=== PATIENT | female | born 1995 | race Caucasian/White ===

== ENCOUNTER 2019-07-09 17:59 | Emergency (ER) | payer SELFPAY ==
--- NOTE | 2019-07-09 18:19 | PC.NURSE ---
pt never made it past registration, due to problems with her insurance, she decided to not be seen. left without being seen.
== END 2019-07-09 18:19 | disposition left against medical advice (07) ==
LOC: EXPGLEN 18:20
PROVIDERS: Emergency Provider Nurse Practitioner
DX: Z53.21 Procedure and treatment not carried out due to patient leaving prior to being seen by health care provider (principal)
CPT/HCPCS: 99199

== ENCOUNTER 2021-06-22 17:35 | Emergency (ER) | payer OTHER, SELFPAY ==
--- NOTE | ~2021-06-22 | CT_ITS ---
EXAMINATION: CT abdomen pelvis wo con DATE: 06/22/2021 19:54 INDICATION: Low abdominal pain. Dysuria. Leukocytosis. TECHNIQUE: Computed tomography (CT) of the abdomen and pelvis was performed without intravenous contr ast. Automated exposure control and iterative reconstruction technique were employed. The dose-length product was 1111.02 mGy-cm. COMPARISON: None. FINDINGS: The visualized portions of the lung bases are clear without pneumonia or pleural effusion. The heart size is normal. No pericardial effusion. The liver, gallbladder, spleen, pancreas, adrenal glands, and kidneys are normal. There is no urolithiasis. There are no dilated loops of bowel. The ap pendix is normal. There are no pathologically enlarged lymph nodes. There is no free intraperitoneal fluid. There is a 2.9 cm dominant follicle in right ovary. There is mild lumbar spondylosis. IMPRESSION: 1. No specific etiology for the patient's symptoms. Reviewed, dictated and finalized at location E. DENTIAL SUPPORT WORKER
[2021-06-22 17:38] VITALS: BP 128/76; PULSE 102; RESP 18; TEMP 36.6; O2SAT 100
--- NOTE | 2021-06-22 18:43 | ED.FEMALEGU ---
HPI - Female Genitourinary General Chief complaint: Urogenital-Female Stated complaint: urinary sx Time Seen by Provider: 06/22/21 18:17 Source: patient Mode of arrival: ambulatory Limitations: no limitations History of Present Illness HPI Narrative: This is a 26 year old female that presents to the ER for dysuria. Ongoing today. Associated with hematuria, and lower abdominal pain. Reports possible concern for STDs. Denies fever or vomiting. Related Data Allergies Allergy/AdvReac Type Severity Reaction Status Date / Time No Known Allergies Allergy Unverified 11/25/18 10:16 Review of Systems Review of Systems: CONSTITUTIONAL: Denies fever GASTROINTESTINAL: Reports abdominal pain. Denies nausea, vomiting GENITOURINARY: Reports dysuria and hematuria. SKIN: Denies rash All systems reviewed & are unremarkable except as noted in HPI and below PMFSH Past Medical History Medical History (Updated 06/22/21 @ 21:33 by Brenda Velazquez PA-C) No active medical problems Social History Social History (Updated 06/22/21 @ 20:28 by Brenda Velazquez PA-C) Smoking status: Never smoker Exam Narrative: GENERAL: Well-appearing, well-nourished, and in no acute distress. HEAD: Normocephalic, atraumatic. EYES: EOMI. CHEST: Clear to auscultation. No respiratory distress. No wheezes rales or rhonchi HEART: Regular rate and rhythm. No murmur heard. Normal peripheral pulses. ABDOMEN: Soft, nontender, nondistended, normal active bowel sounds. EXTREMITIES: Normal range of motion. No edema. SKIN: Warm, dry, no rash. NEURO: No focal deficits. Alert and oriented x3. PSYCH: Normal mood and affect PELVIC: Normal external genitalia. Mild amount of irritation around the cervical os. No abnormal discharge Course Vital Signs Vital signs: Vital Signs Temperature 97.9 F 06/22/21 17:38 Pulse Rate 102 H 06/22/21 17:38 Respiratory Rate 18 06/22/21 17:38 Blood Pressure 128/76 06/22/21 17:38 Pulse Oximetry 100 06/22/21 17:38 Temperature 97.9 F 06/22/21 17:38 Pulse Rate 102 H 06/22/21 17:38 Respiratory Rate 18 06/22/21 17:38 Blood Pressure 128/76 06/22/21 17:38 Pulse Oximetry 100 06/22/21 17:38 MDM - Female Genitourinary MDM Narrative Medical decision making narrative: Patient presents to the emergency department for dysuria and hematuria. She is afebrile and nontoxic-appearing. CBC with leukocytosis to 17.5. Metabolic panel without concerning findings. UA with evidence of infection. Bedside test is negative. Trichomonas is also negative. Chlamydia, gonorrhea and genital culture sent. CT scan of the abdomen and pelvis without acute findings. Patient was updated on case findings. Was given first dose of antibiotics IV in the ED to treat for UTI. Will be started on oral antibiotics. She is to follow-up with primary care doctor. She was given warnings to return to the ER Lab Data Attestation: I reviewed the patient's lab results. Result diagrams: 06/22/21 19:15 06/22/21 19:15 Labs: Lab Results 06/22/21 06/22/21 06/22/21 Range/Units 17:48 19:15 19:15 WBC 17.5 H (4.5-10.0) K/mm3 RBC 4.81 (4.2-5.4) M/mm3 Hgb 14.4 (12.0-15.0) g/dL Hct 43.5 (37.0-47.0) % MCV 90.4 (80-100) fl MCH 29.9 (26-34) pg MCHC 33.1 (32-36) g/dl RDW 12.9 (11.5-14.5) % Plt Count 287 (150-375) k/mm3 MPV 11.9 H (7.4-10.4) fl Immature Gran % (Auto) 0.3 (0-0.5) % Neut % (Auto) 79.9 H (45.5-73.1) % Lymph % (Auto) 11.9 L (18.3-44.2) % [place] % (Auto) 6.4 (2.6-8.5) % Eos % (Auto) 1.3 (0-4.4) % Baso % (Auto) 0.2 (0.2-1.2) % Lymph # (Auto) 2.07 (0.9-3.2) K/mm3 [place] # (Auto) 1.1 H (0.1-0.6) K/mm3 Eos # (Auto) 0.2 (0-0.3) K/mm3 Baso # (Auto) 0.0 (0.0-0.1) K/mm3 Abs Immat Gran (auto) 0.06 H (0.00-0.031) K/mm3 Absolute Neuts (auto) 14.0 H (1.3-6.7) K/mm3 Absolute Nucleated RBC 0.0 (0.0-0.012
[2021-06-22 19:19] LABS: Add Urine Microscopic? YES; Appearance Urine Cloudy (Clear); Bacteria Urine 1+ /hpf; Bilirubin Urine Negative (Negative); Blood Urine 3+ (Negative); Color Urine Yellow (Yellow); Glucose Urine UA Negative (Negative); Ketones Urine Negative (Negative); Leukocyte Esterase Ur 3+ LEU/UL (Negative); Mucus Urine Few /lpf; Nitrate Urine Positive (Negative); Protein Urine 1+ mg/dL (Negative); RBC Urine >75 /hpf (0-2); Specific Grav Ur 1.027 (1.001-1.035); Squamous Epithelial Cell Urine Moderate /hpf (Few); Urobilinogen Urine Negative mg/dL (<2.0); WBC Urine >75 /hpf
[2021-06-22 19:22] LABS: Basophils Percent Auto 0.2 % (0.2-1.2); Eosinophils Absolute Auto 0.2 K/mm3 (0-0.3); Eosinophils Percent Auto 1.3 % (0-4.4); Hematocrit 43.5 % (37.0-47.0); Hemoglobin 14.4 g/dL (12.0-15.0); Immature Granulocyte Absolute 0.06 K/mm3 (0.00-0.031); Immature Granulocyte Percent A 0.3 % (0-0.5); Lymphocytes Absolute Auto 2.07 K/mm3 (0.9-3.2); Lymphocytes Percent Auto 11.9 % (18.3-44.2); Mean Corpuscular HGB Conc 33.1 g/dl (32-36); Mean Corpuscular Hemoglobin 29.9 pg (26-34); Mean Corpuscular Volume 90.4 fl (80-100); Mean Platelet Volume 11.9 fl (7.4-10.4); Monocytes Absolute Auto 1.1 K/mm3 (0.1-0.6); Monocytes Percent Auto 6.4 % (2.6-8.5); Neutrophils Percent Auto 79.9 % (45.5-73.1); Platelet Count Result 287 k/mm3 (150-375); Red Blood Count 4.81 M/mm3 (4.2-5.4); Red Cell Distribution Width 12.9 % (11.5-14.5); White Blood Count 17.5 K/mm3 (4.5-10.0)
[2021-06-22 19:36] LABS: Anion Gap 11 mmol/L (8-16); Blood Urea Nitrogen 12 mg/dL (7-17); Calcium 9.5 mg/dL (8.4-10.2); Carbon Dioxide 26 mmol/L (22-30); Chloride 101 mmol/L (98-107); Estimated CRCL calculation 130 ml/min; Estimated Glomerular Filt Rate > 60; Glucose 104 mg/dL (65-110); Potassium 3.8 mmol/L (3.4-5.0); Sodium 138 mmol/L (137-145)
[2021-06-22] MEDS: ONDANSETRON HCL ODT 4 MG TABLET PO (21:50)
== END 2021-06-22 21:54 | disposition home or self-care (01) ==
PROVIDERS: Physician Assistant; Emergency Provider Emergency Medicine
DX: N10 Acute pyelonephritis (principal)
CPT/HCPCS: 36415; 74176; 80048; 81001; 81025; 85025; 87070; 87077; 87086; 87186; 87491; 87591; 87808; 96365; 99284; A9270; J0696

== ENCOUNTER 2021-06-28 10:16 | Emergency (ER) | payer OTHER, SELFPAY ==
--- NOTE | ~2021-06-28 | XR_ITS ---
EXAMINATION: XR chest 2V DATE: 06/28/2021 10:50 INDICATION: Chest pain TECHNIQUE: PA and lateral views of the chest are obtained. COMPARISON: None available FINDINGS: The lungs are free of acute opacities. There is no pleural effusion or pneumothorax. The ca rdiomediastinal silhouette is normal. The visualized bones and soft tissues are unremarkable. IMPRESSION: 1. No acute cardiopulmonary abnormality. Reviewed, dictated and finalized at location A. UP MACHINE OPERATOR
[2021-06-28 10:20] VITALS: BP 126/79; PULSE 89; RESP 20; TEMP 36.9; O2SAT 100
[2021-06-28 10:30] VITALS: O2SAT 100
--- NOTE | 2021-06-28 10:33 | ECG_ITS ---
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
[2021-06-28 10:57] LABS: Alanine Aminotransferase 15 U/L (4-35); Albumin Level 4.5 g/dL (3.5-5.1); Alkaline Phosphatase 69 U/L (38-126); Anion Gap 6 mmol/L (8-16); Aspartate Amino Transferase 21 U/L (14-36); Bilirubin,Total 0.5 mg/dL (0.2-1.3); Blood Urea Nitrogen 9 mg/dL (7-17); Calcium 9.8 mg/dL (8.4-10.2); Carbon Dioxide 27 mmol/L (22-30); Chloride 105 mmol/L (98-107); Estimated CRCL calculation 130 ml/min; Estimated Glomerular Filt Rate > 60; Glucose 95 mg/dL (65-110); Lipase 269 U/L (23-300); Potassium 4.1 mmol/L (3.4-5.0); Prothrombin Time 12.5 Seconds (11.1-14.7); Sodium 138 mmol/L (137-145)
[2021-06-28 11:01] LABS: Basophils Absolute Auto 0.1 K/mm3 (0.0-0.1); Basophils Percent Auto 0.5 % (0.2-1.2); Eosinophils Absolute Auto 0.2 K/mm3 (0-0.3); Hematocrit 44.6 % (37.0-47.0); Hemoglobin 14.8 g/dL (12.0-15.0); Immature Granulocyte Absolute 0.02 K/mm3 (0.00-0.031); Immature Granulocyte Percent A 0.2 % (0-0.5); Lymphocytes Percent Auto 26.5 % (18.3-44.2); Mean Corpuscular HGB Conc 33.2 g/dl (32-36); Mean Corpuscular Hemoglobin 29.6 pg (26-34); Mean Corpuscular Volume 89.2 fl (80-100); Mean Platelet Volume 11.9 fl (7.4-10.4); Monocytes Absolute Auto 0.7 K/mm3 (0.1-0.6); Monocytes Percent Auto 7.1 % (2.6-8.5); Neutrophils Percent Auto 63.7 % (45.5-73.1); Platelet Count Result 288 k/mm3 (150-375); Red Cell Distribution Width 12.9 % (11.5-14.5); White Blood Count 9.4 K/mm3 (4.5-10.0)
--- NOTE | 2021-06-28 11:02 | ED.CHESTPAIN ---
HPI - Chest Pain General Chief Complaint: Chest Pain Stated Complaint: chest pain Time Seen by Provider: 06/28/21 10:26 Source: patient Mode of arrival: ambulatory Limitations: no limitations History of Present Illness HPI narrative: Pt sasy she thinks she had a panic attack at work. Pt has been under a lot of stress recently. Pt says she sharted getting anxious and had chest pressure so came to ER. Symptoms have resoved now. 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 Onset (ago): minute(s) (30) Timing of current episode: episodic Prior episodes: Yes Pain location: left chest Pain radiation: none Severity: mild Quality: heaviness Relieving factors: nothing Exacerbating factors: nothing Risk Factors Coronary artery disease risk factors: none Thoracic aortic dissection risk factors: none Related Data Allergies Allergy/AdvReac Type Severity Reaction Status Date / Time No Known Allergies Allergy Unverified 11/25/18 10:16 Review of Systems Review of Systems: All systems reviewed & are unremarkable except as noted in HPI and below PMFSH Past Medical History Medical History (Updated 06/28/21 @ 11:09 by Alba Luu III, DO) No active medical problems Social History Social History (Updated 06/22/21 @ 20:28 by Brenda Velazquez PA-C) Smoking status: Never smoker Exam Const: General: no acute distress Orientation/consciousness: patient oriented x3 Eyes: Conjunctivae: conjunctivae normal Neck: Neck: normal visual inspection Chest: Chest palpation & inspection: normal inspection of the chest Resp: Effort & Inspection: normal respiratory effort Auscultation: clear to auscultation bilaterally Cardio: Rate: regular rate Rhythm: regular rhythm GI: GI Palp: Yes Soft to palpation Auscultation: normal bowel sounds Neuro: General: patient oriented x3 and moves all extremities Extrem: General: normal to inspection Psych: Appearance: grossly normal Affect: normal affect Thought content: Yes Normal thought content present Course Course Emergency Course: Pt calm now CP resolved. wants to follow up with PCP for discusion bout meds for anxiety prison Vital Signs Vital signs: Vital Signs Temperature 98.4 F 06/28/21 10:20 Pulse Rate 89 06/28/21 10:20 Respiratory Rate 20 06/28/21 10:20 Blood Pressure 126/79 06/28/21 10:20 Pulse Oximetry 100 06/28/21 10:20 Temperature 98.4 F 06/28/21 10:20 Pulse Rate 89 06/28/21 10:20 Respiratory Rate 20 06/28/21 10:20 Blood Pressure 126/79 06/28/21 10:20 Pulse Oximetry 100 06/28/21 10:30 MDM - Chest Pain Lab Data Result diagrams: 06/28/21 10:39 06/28/21 10:39 Labs: Lab Results 06/28/21 06/28/21 06/28/21 Range/Units 10:39 10:39 10:39 WBC Pending RBC Pending Hgb Pending Hct Pending MCV Pending MCH Pending MCHC Pending RDW Pending Plt Count Pending MPV Pending Immature Gran % (Auto) Pending Neut % (Auto) Pending Lymph % (Auto) Pending [place] % (Auto) Pending Eos % (Auto) Pending Baso % (Auto) Pending Lymph # (Auto) Pending [place] # (Auto) Pending Eos # (Auto) Pending Baso # (Auto) Pending Abs Immat Gran (auto) Pending Absolute Neuts (auto) Pending Absolute Nucleated RBC Pending Nucleated RBC % Pending PT 12.5 (11.1-14.7) Seconds INR 1.0 APTT 28.0 (22.3-36.8) SECONDS Sodium 138 (137-145) mmol/L Potassium 4.1 (3.4-5.0) mmol/L Chloride 105 (98-107) mmol/L Carbon Dioxide 27 (22-30) mmol/L Anion Gap 6 L (8-16) mmol/L BUN 9 (7-17) mg/dL Creatinine 0.60 L (0.7-1.0) mg/dL Estim Creat Clear Calc 130 ml/min Estimated GFR > 60 (59 - ) Glucose 95 (65-110) mg/dL Calcium 9.8 (8.4-10.2) mg/dL Total Bilirubin 0.5 (0.2-1.3) mg/dL AST 21 (14-36)
[2021-06-28 11:09] LABS: Troponin I < 0.012 ng/mL (0.000-0.034)
== END 2021-06-28 11:45 | disposition home or self-care (01) ==
LOC: ANHED 10:31
PROVIDERS: Emergency Provider Emergency Medicine; PCP Emergency Medicine
DX: F41.0 Panic disorder [episodic paroxysmal anxiety] (principal); R07.9 Chest pain, unspecified
CPT/HCPCS: 36415; 71046; 80053; 83690; 84484; 85025; 85610; 85730; 93005; 99284

== ENCOUNTER 2022-05-09 14:40 | Outpatient (CLI) | payer OTHER, SELFPAY ==
--- NOTE | ~2022-05-09 | CT_ITS ---
EXAMINATION: CT abdomen pelvis w con DATE: 05/09/2022 15:28 INDICATION: Lower abdominal pain TECHNIQUE: Computed tomography (CT) of the abdomen and pelvis was performed with 100 mL Omnipaque-350 intravenous contrast. Automated exposure control and iterative reconstruction technique were employe d. The dose-length product was 612.91 mGy-cm. COMPARISON: 06/22/2021 FINDINGS: Lung bases are clear. Heart size is normal. No pericardial or pleural effusion. There are few scatter ed indeterminate small hypodense versus hypoenhancing hepatic lesions, the largest measuring 2.4 cm a nd focally bulging the liver capsule at the caudal tip of the right hepatic lobe. Gallbladder, spleen , pancreas, bilateral adrenal glands and kidneys are normal. Moderate to large amount of stool scatte red throughout the colon. Small bowel and appendix are normal. Bladder, uterus and right ovary are un remarkable. 1.6 cm peripherally enhancing corpus luteum cyst at the left ovary. No free intraperitone al gas or fluid. No pathologically enlarged abdominal or pelvic lymphadenopathy. Osteitis condensans ilii, left greater than right. IMPRESSION: 1. No acute intra-abdominal/pelvic process. 2. Multiple indeterminate hypodense/hypoenhancing hepatic lesions which are greater than fluid attenu ation. Given patient age and in the absence of known liver disease or primary malignancy these are mo st likely benign with differential including hemangiomas, hepatic adenoma and focal nodular hyperplas ia. Recommend further evaluation with pre and postcontrast MRI. Reviewed, dictated and finalized at location A. AL SERVICES AIDE IMPRESSION: 1. No acute intra-abdominal/pelvic process. 2. Multiple indeterminate hypodense/hypoenhancing hepatic lesions which are gre ater than fluid attenuation. Given patient age and in the absence of known live r disease or primary malignancy these are most likely benign with differential including hemangiomas, hepatic adenoma and focal nodular hyperplasia. Recommend further evaluation with pre and postcontrast MRI.
[2022-05-09 16:22] LABS: Basophils Absolute Auto 0.1 K/mm3 (0.0-0.1); Basophils Percent Auto 0.4 % (0.2-1.2); Eosinophils Absolute Auto 0.4 K/mm3 (0-0.3); Eosinophils Percent Auto 3.7 % (0-4.4); Immature Granulocyte Absolute 0.04 K/mm3 (0.00-0.031); Immature Granulocyte Percent A 0.3 % (0-0.5); Lymphocytes Absolute Auto 3.13 K/mm3 (0.9-3.2); Lymphocytes Percent Auto 27.3 % (18.3-44.2); Mean Corpuscular HGB Conc 32.6 g/dl (32-36); Mean Corpuscular Hemoglobin 29.5 pg (26-34); Mean Corpuscular Volume 90.5 fl (80-100); Mean Platelet Volume 12.2 fl (7.4-10.4); Monocytes Percent Auto 8.4 % (2.6-8.5); Neutrophils Absolute Auto 6.9 K/mm3 (1.3-6.7); Neutrophils Percent Auto 59.9 % (45.5-73.1); Platelet Count Result 275 k/mm3 (150-375); Red Blood Count 4.75 M/mm3 (4.2-5.4); Red Cell Distribution Width 13.5 % (11.5-14.5); White Blood Count 11.5 K/mm3 (4.5-10.0)
[2022-05-09 16:29] LABS: Alanine Aminotransferase 19 U/L (6-35); Albumin Level 4.2 g/dL (3.5-5.1); Alkaline Phosphatase 60 U/L (38-126); Anion Gap 6 mmol/L (8-16); Aspartate Amino Transferase 19 U/L (14-36); Bilirubin,Total 0.3 mg/dL (0.2-1.3); Blood Urea Nitrogen 8 mg/dL (7-17); CRP 0.7 mg/dL (<1.0); Calcium 8.7 mg/dL (8.4-10.2); Carbon Dioxide 29 mmol/L (22-30); Chloride 103 mmol/L (98-107); Estimated Glomerular Filt Rate > 60; Glucose 74 mg/dL (65-110); Potassium 4.1 mmol/L (3.4-5.0); Sodium 138 mmol/L (137-145)
[2022-05-09 16:56] LABS: Erythrocyte Sedimentation Rate 15 mm/hr (0-20)
== END 2022-05-09 14:41 | disposition home or self-care (01) ==
PROVIDERS: PCP Nurse Practitioner; Visit Provider Nurse Practitioner
DX: R10.32 Left lower quadrant pain (principal)
CPT/HCPCS: 36415; 74177; 80053; 85025; 85652; 86140; Q9967

== ENCOUNTER 2022-07-24 20:20 | Emergency (ER) | payer OTHER, SELFPAY ==
[2022-07-24] VITALS (13 sets, daily range): BP systolic 104–113; BP diastolic 65–80; PULSE 76–96; RESP 16–18; TEMP 36.6–36.8; O2SAT 96–100
--- NOTE | ~2022-07-24 | CT_ITS ---
EXAMINATION: CT abdomen pelvis w con DATE: 07/24/2022 22:36 INDICATION: upper abdominal pain, diarrhea TECHNIQUE: Computed tomography (CT) of the abdomen and pelvis was performed with 100 mL Omnipaque-350 intravenous contrast. Automated exposure control and iterative reconstruction technique were employe d. The dose-length product was 730.80 mGy-cm. COMPARISON: 05/09/2022. FINDINGS: Lower thorax: Unremarkable Liver: 1.5 cm and 8mm left liver lobe hypodensities, likely representing cysts or hemangiomas. 2.4 cm left lobe lesion near the liver tip with peripheral nodular enhancement typical of a hemangioma. Biliary/Gallbladder: Gallbladder is normal. No bile duct dilation. Pancreas: No mass or duct dilation. Spleen: Normal. Adrenals:No mass. Kidneys: No mass, stone, or hydronephrosis. GI tract: Mild distal esophageal and gastric wall edema. No small or large bowel dilation. Normal archana endix. Mesentery/Peritoneum: No ascites, mass, or free air. Retroperitoneum: No mass. Pelvis: Pelvic organs are within normal limits. Soft Tissues: Soft tissues and body wall unremarkable. Bones: No acute osseous finding. IMPRESSION: Mild esophagitis/gastritis. Otherwise unremarkable CT abdomen and pelvis findings. Reviewed, dictated and finalized at location K. IMPRESSION: Mild esophagitis/gastritis. Otherwise unremarkable CT abdomen and pelvis juan miguel chambers.
[2022-07-24 20:50] LABS: Basophils Absolute Auto 0.1 K/mm3 (0.0-0.1); Basophils Percent Auto 0.7 % (0.2-1.2); Eosinophils Absolute Auto 0.1 K/mm3 (0-0.3); Eosinophils Percent Auto 1.4 % (0-4.4); Hematocrit 46.1 % (37.0-47.0); Hemoglobin 15.2 g/dL (12.0-15.0); Immature Granulocyte Absolute 0.02 K/mm3 (0.00-0.031); Immature Granulocyte Percent A 0.3 % (0-0.5); Lymphocytes Absolute Auto 1.59 K/mm3 (0.9-3.2); Lymphocytes Percent Auto 22.4 % (18.3-44.2); Mean Corpuscular Hemoglobin 29.5 pg (26-34); Mean Corpuscular Volume 89.3 fl (80-100); Mean Platelet Volume 11.9 fl (7.4-10.4); Monocytes Absolute Auto 0.8 K/mm3 (0.1-0.6); Monocytes Percent Auto 10.6 % (2.6-8.5); Neutrophils Absolute Auto 4.6 K/mm3 (1.3-6.7); Neutrophils Percent Auto 64.6 % (45.5-73.1); Platelet Count Result 284 k/mm3 (150-375); Red Blood Count 5.16 M/mm3 (4.2-5.4); Red Cell Distribution Width 13.1 % (11.5-14.5); White Blood Count 7.1 K/mm3 (4.5-10.0)
[2022-07-24] MEDS: FAMOTIDINE 20 MG/2 ML VIAL IV PUSH (20:56)
[2022-07-24] MEDS: ONDANSETRON INJ 4 MG/2 ML VIAL IV PUSH (20:56)
[2022-07-24 20:57] LABS: Appearance Urine Cloudy (Clear); Bacteria Urine None Seen /hpf; Bilirubin Urine Negative (Negative); Blood Urine Negative (Negative); Color Urine Yellow (Yellow); Glucose Urine UA Negative (Negative); Ketones Urine Negative (Negative); Leukocyte Esterase Ur 1+ LEU/UL (Negative); Nitrate Urine Negative (Negative); Non Pathogenic Casts 0-2; Protein Urine Negative (Negative); Specific Grav Ur 1.006 (1.001-1.035); Squamous Epithelial Cell Urine Occasional /hpf (Few); Urobilinogen Urine 0.2 mg/dL (<2.0)
[2022-07-24] MEDS: ACETAMINOPHEN 500 MG TABLET 1000 MG PO (20:57)
[2022-07-24] MEDS: SODIUM CHLORIDE 0.9% IV 2,000 ML 999 ML IV CONT (20:57)
[2022-07-24 21:00] LABS: Add Urine Microscopic? YES
[2022-07-24 21:02] LABS: Alanine Aminotransferase 20 U/L (6-35); Albumin Level 4.4 g/dL (3.5-5.1); Alkaline Phosphatase 71 U/L (38-126); Anion Gap 7 mmol/L (8-16); Aspartate Amino Transferase 22 U/L (14-36); Bilirubin,Total 0.4 mg/dL (0.2-1.3); Blood Urea Nitrogen 7 mg/dL (7-17); Calcium 9.1 mg/dL (8.4-10.2); Carbon Dioxide 27 mmol/L (22-30); Chloride 105 mmol/L (98-107); Estimated CRCL calculation 156 ml/min; Estimated Glomerular Filt Rate > 60; Glucose 96 mg/dL (65-110); Lipase 189 U/L (23-300); Magnesium 1.9 mg/dL (1.6-2.3); Sodium 139 mmol/L (137-145)
[2022-07-24 21:27] LABS: Influenza A QL RT-PCR Negative (Negative); Influenza B QL RT-PCR Negative (Negative); RSV RNA, RT-PCR Negative (Negative); SARS-CoV-2 RNA PCR Negative
--- NOTE | 2022-07-24 21:30 | ED.GENADULT ---
HPI - General Adult General Chief complaint: Unspecified <Conchis Martin PA-C - Last Filed: 07/25/22 03:02> Stated complaint: black stool <CARMINA Mazariegos Last Filed: 07/25/22 03:02> Time Seen by Provider: 07/24/22 20:39 <Conchis Martin PA-C - Last Filed: 07/25/22 03:02> Source: patient <CARMINA Mazariegos Last Filed: 07/25/22 03:02> Mode of arrival: ambulatory <CARMINA Mazariegos Last Filed: 07/25/22 03:02> Limitations: no limitations <CARMINA Mazariegos Last Filed: 07/25/22 03:02> History of Present Illness HPI narrative: Patient is a 27-year-old female who presents the ED with multiple complaints. Patient reports she began feeling mildly ill yesterday with sore throat, subjective fever, chills, headache. She was seen at the outpatient [facility] urgent care center and tested negative for COVID. She states most of those symptoms have resolved. Today, she developed diarrhea and reported having numerous episodes of loose stool. She has been taking Imodium, TheraFlu, Pepto-Bismol, Tylenol. Last took Tylenol at noon. She also reports having upper abdominal pain, but denies nausea or vomiting, cough, congestion, dysuria, hematuria, urinary frequency. <Conchis Martin PA-C - Last Filed: 07/25/22 03:02> Related Data Allergies/adverse reactions: Allergies Allergy/AdvReac Type Severity Reaction Status Date / Time No Known Allergies Allergy Verified 07/24/22 20:29 <CARMINA Mazariegos Last Filed: 07/25/22 03:02> Review of Systems Review of Systems: CONSTITUTIONAL: See HPI. ENT: Denies rhinorrhea, congestion, sore throat. CARDIOVASCULAR: Denies chest pain. RESPIRATORY: Denies dyspnea. GASTROINTESTINAL: See HPI. GENITOURINARY: Denies dysuria or hematuria. SKIN: Denies rash or itching. MUSCULOSKELETAL: Denies back pain, joint pain, or myalgia. NEUROLOGIC: See HPI. <Conchis Martin PA-C - Last Filed: 07/25/22 03:02> All systems reviewed & are unremarkable except as noted in HPI and below <Conchis Martin PA-C - Last Filed: 07/25/22 03:02> [facility] Past Medical History Medical History: Medical History Anxiety <Conchis Martin PA-C - Last Filed: 07/25/22 03:02> Surgical History Surgical History: Surgical History (Updated 07/24/22 @ 22:25 by Conchis Martin PA-C) No pertinent past surgical history <Conchis Martin PA-C - Last Filed: 07/25/22 03:02> Social History Social History: Social History Smoking status: Never smoker <Conchis Martin PA-C - Last Filed: 07/25/22 03:02> Exam Narrative: GENERAL: Well appearing, obese, non-toxic, in no acute distress. HEAD: Normocephalic, atraumatic. NECK: Supple. No adenopathy, no masses. RESPIRATORY: Airway patent, respirations nonlabored. Clear to auscultation bilaterally, no rales, rhonchi, wheezing. CARDIOVASCULAR: Regular rate and rhythm without murmurs, rubs, or gallops. Peripheral pulses 2+ and equal bilaterally. ABDOMINAL: Soft, minimal tenderness throughout upper abdomen, no focal tenderness, nondistended, no hepatosplenomegaly. Normoactive BS. MUSCULOSKELETAL: Moves all extremities. Strength/ROM intact without gross deformities. SKIN: Warm, dry, normal color. No rashes. NEURO: A&O X3. Speech clear. Cranial nerves II-XII grossly intact. Steady gait. No ataxic movements. PSYCHIATRIC: Flat affect. Normal interaction. <Conchis Martin PA-C - Last Filed: 07/25/22 03:02> Course CROSS COUNTRY COACH/PA Physician Supervision This is a was performed by both a physician and an APC. I performed all aspects of the MDM as documented w/ the following additions: 19-year-old female presenting with multiple complaints. Treated for gastritis. White blood cells in urine but asymptomatic. Will await culture re
== END 2022-07-25 00:25 | disposition home or self-care (01) ==
PROVIDERS: Emergency Medicine; Emergency Provider Physician Assistant; PCP Nurse Practitioner
DX: K29.70 Gastritis, unspecified, without bleeding (principal); R82.90 Unspecified abnormal findings in urine; R10.11 Right upper quadrant pain; R10.12 Left upper quadrant pain; R19.7 Diarrhea, unspecified; Z20.822 Contact with and (suspected) exposure to COVID-19
CPT/HCPCS: 36415; 74177; 80053; 81001; 81025; 83690; 83735; 85025; 87086; 87088; 87147; 87637; 96361; 96374; 96375; 99284; A9270; J2405; J7030; Q9967

== ENCOUNTER 2023-07-13 18:17 | Emergency (ER) | payer OTHER, SELFPAY ==
--- NOTE | ~2023-07-13 | CT_ITS ---
EXAMINATION: CT abdomen pelvis w con DATE: 07/13/2023 21:08 INDICATION: abdominal pain leukocytosis TECHNIQUE: Computed tomography (CT) of the abdomen and pelvis was performed with 100 mL Omnipaque-350 intravenous contrast. Automated exposure control and iterative reconstruction technique were employe d. The dose-length product was 690.98 mGy-cm. COMPARISON: 07/24/2022. FINDINGS: Lower thorax: Unremarkable Liver: 1.9 cm and 2.4 cm right lobe hemangiomas. Additional subcentimeter hypodensities likely repres enting cysts or hemangiomas. Biliary/Gallbladder: No inflammatory changes of the gallbladder. 1.0 cm hyperdensity or enhancing foc us in the gallbladder fundus. No bile duct dilation. Pancreas: No mass or duct dilation. Spleen: Normal. Adrenals:No mass. Kidneys: No suspicious mass, obstructing stone, or hydronephrosis. GI tract: No small or large bowel dilation. Normal appendix. Mesentery/Peritoneum: No ascites, mass, or free air. Retroperitoneum: No mass. Pelvis: 2.3 cm subserosal fibroid. Normal ovaries. Normal urinary bladder.. Soft Tissues: Soft tissues and body wall unremarkable. Bones: No acute osseous finding. L4 limbus vertebra. IMPRESSION: No acute abdominopelvic process detected. 1.0 cm gallstone, adherent sludge ball, or gallbladder polyp, recommend nonemergent outpatient right upper quadrant ultrasound for further characterization. Reviewed, dictated and finalized at location K. NURSE IMPRESSION: No acute abdominopelvic process detected. 1.0 cm gallstone, adherent sludge ball, or gallbladder polyp, recommend nonemer gent outpatient right upper quadrant ultrasound for further characterization.
[2023-07-13 18:30] VITALS: BP 136/87; PULSE 70; RESP 16; TEMP 36.5; O2SAT 100
[2023-07-13 18:52] VITALS: BP 144/105; PULSE 73; RESP 20; O2SAT 100
--- NOTE | 2023-07-13 19:25 | ED.GENADULT ---
HPI - General Adult General Chief complaint: Abdominal Pain Stated complaint: back and abd pain Time Seen by Provider: 07/13/23 19:06 History of Present Illness HPI narrative: Patient 28-year-old female who presents emergency department with chief complaint of abdominal pain. The patient reports she ate pizza this evening and started having pain in the epigastric and right upper quadrant the patient reports the pain has improved and is essentially almost resolved at this point patient denies fever reports no prior intra-abdominal surgeries. Related Data Home Medications Medication Instructions Recorded Confirmed No Home Medications 12/12/22 12/12/22 Allergies Allergy/AdvReac Type Severity Reaction Status Date / Time No Known Allergies Allergy Verified 07/13/23 18:51 Review of Systems Review of Systems: A 10 system review of systems was completed on the patient and is negative except for what is stated in the HPI. Nursing and ancillary documentation was reviewed. PMFSH Past Medical History Medical History Allergies Anxiety PCOS (polycystic ovarian syndrome) Surgical History Surgical History No pertinent past surgical history Social History Social History Smoking status: Never smoker Lack of Transportation: No Lack of Food: Never True Current Housing: I Have Housing Concerned About Future Housing: No Difficulty Paying Gas/Electric Bills: No Difficulty Paying for Meds: No Currently Unemployed: No Education: Associate Degree Difficulty w/ Childcare or Family Care: No Exam Narrative: GENERAL: Well-appearing, well-nourished, and in no acute distress. HEAD: Normocephalic, atraumatic. EYES: PERRLA and EOMI. ENT: Nares clear, no rhinorrhea or epistaxis. Mucous membranes moist. NECK: Supple. CHEST: Clear to auscultation. No respiratory distress. HEART: Regular rate and rhythm. No murmur heard. Normal peripheral pulses. ABDOMEN: Soft, Tenderness to palpation the right upper quadrant, nondistended, normal active bowel sounds. EXTREMITIES: Normal range of motion. No edema. SKIN: Warm, dry, no rash. NEURO: No focal deficits. Alert and oriented x3. PSYCH: Normal mood and affect. Course Vital Signs Vital signs: Vital Signs Temperature 36.5 C 07/13/23 18:30 Pulse Rate 70 07/13/23 18:30 Respiratory Rate 16 07/13/23 18:30 Blood Pressure 136/87 07/13/23 18:30 Pulse Oximetry 100 07/13/23 18:30 Oxygen Delivery Room Air 07/13/23 18:30 Temperature 36.5 C 07/13/23 18:30 Pulse Rate 73 07/13/23 18:52 Respiratory Rate 20 07/13/23 18:52 Blood Pressure 144/105 H 07/13/23 18:52 Pulse Oximetry 100 07/13/23 18:52 Oxygen Delivery Room Air 07/13/23 18:30 Medical Decision Making MDM Narrative Medical decision making narrative: differential diagnosis includes biliary colic, cholecystitis common duct choledocholithiasis, pancreatitis laboratory studies were obtained on the patient showed a white count of 17.9 electrolytes were otherwise within normal limits liver enzymes were normal lipase was 338 CT scan of the abdomen pelvis showed a 1 cm gallstone present and some gallbladder sludge present no evidence of acute cholecystitis no evidence of pancreatitis the patient's pain is doing much better at this time case was discussed with Dr. Barrera patient was started on a low-fat no fat diet and will be instructed to call Dr. Goodwin office on Friday and schedule an appointment Vital Signs Vital Signs: Vital Signs Temperature 36.5 C 07/13/23 18:30 Pulse Rate 70 07/13/23 18:30 Respiratory Rate 16 07/13/23 18:30 Blood Pressure 136/87 07/13/23 18:30 Pulse Oximetry 100 07/13/23 18:30 Oxygen Delivery Room Air 07/13/23 18:30 Temperatur
[2023-07-13 19:52] LABS: Basophils Percent Auto 0.2 % (0.2-1.2); Eosinophils Absolute Auto 0.1 K/mm3 (0-0.3); Eosinophils Percent Auto 0.6 % (0-4.4); Hematocrit 45.1 % (37.0-47.0); Hemoglobin 14.5 g/dL (12.0-15.0); Immature Granulocyte Absolute 0.09 K/mm3 (0.00-0.031); Immature Granulocyte Percent A 0.5 % (0-0.5); Lymphocytes Absolute Auto 1.79 K/mm3 (0.9-3.2); Mean Corpuscular HGB Conc 32.2 g/dl (32-36); Mean Corpuscular Hemoglobin 29.2 pg (26-34); Mean Corpuscular Volume 90.9 fl (80-100); Mean Platelet Volume 12.1 fl (7.4-10.4); Monocytes Absolute Auto 0.9 K/mm3 (0.1-0.6); Neutrophils Percent Auto 83.7 % (45.5-73.1); Platelet Count Result 296 k/mm3 (150-375); Red Blood Count 4.96 M/mm3 (4.2-5.4); Red Cell Distribution Width 13.2 % (11.5-14.5); White Blood Count 17.9 K/mm3 (4.5-10.0)
[2023-07-13 20:03] LABS: Alanine Aminotransferase 17 U/L (6-35); Albumin Level 4.2 g/dL (3.5-5.1); Alkaline Phosphatase 70 U/L (38-126); Anion Gap 6 mmol/L (8-16); Aspartate Amino Transferase 20 U/L (14-36); Bilirubin,Total 0.4 mg/dL (0.2-1.3); Blood Urea Nitrogen 12 mg/dL (7-17); Calcium 9.5 mg/dL (8.4-10.2); Carbon Dioxide 28 mmol/L (22-30); Chloride 103 mmol/L (98-107); Estimated CRCL calculation 116 ml/min; Estimated Glomerular Filt Rate > 60; Glucose 132 mg/dL (65-110); Lipase 338 U/L (23-300); Potassium 3.8 mmol/L (3.4-5.0); Sodium 137 mmol/L (137-145)
--- NOTE | 2023-07-13 20:04 | PC.NURSE ---
When going in to administer medications, patient states she does not want any because her symptoms have subsided. Patient reports that she does not want an IV either. EDP made aware.
[2023-07-13 20:13] LABS: Appearance Urine Clear (Clear); Bacteria Urine None Seen /hpf; Bilirubin Urine Negative (Negative); Blood Urine Negative (Negative); Color Urine Yellow (Yellow); Glucose Urine UA Negative (Negative); Ketones Urine Negative (Negative); Leukocyte Esterase Ur Trace LEU/UL (Negative); Nitrate Urine Negative (Negative); Non Pathogenic Casts 0-2; Protein Urine Negative (Negative); Specific Grav Ur 1.011 (1.001-1.035); Squamous Epithelial Cell Urine None seen /hpf (Few); Urobilinogen Urine 0.2 mg/dL (<2.0); WBC Urine 0-5 /hpf
[2023-07-13 20:21] LABS: Add Urine Microscopic? YES
[2023-07-13 22:06] VITALS: BP 134/70; PULSE 78; RESP 14; O2SAT 98
== END 2023-07-13 22:08 | disposition home or self-care (01) ==
PROVIDERS: Emergency Provider Emergency Medicine; PCP Internal Medicine
DX: K80.70 Calculus of gallbladder and bile duct without cholecystitis without obstruction (principal); E28.2 Polycystic ovarian syndrome
CPT/HCPCS: 36415; 74177; 80053; 81001; 81025; 83690; 85025; 99284; Q9967

== ENCOUNTER 2023-07-27 01:59 | Emergency (ER) | payer OTHER, SELFPAY ==
[2023-07-27 02:17] VITALS: BP 141/79; PULSE 72; RESP 18; TEMP 36.4; O2SAT 100
--- NOTE | 2023-07-27 02:32 | PC.NURSE ---
Shortly after registration, pt screaming and rolling around on floor. Encouraged pt to not lay on floor, but to lay on one of the benches instead. Reassured pt that she would get a turn in triage once this RN was finished with previous pt.
[2023-07-27 02:36] LABS: Basophils Absolute Auto 0.1 K/mm3 (0.0-0.1); Basophils Percent Auto 0.4 % (0.2-1.2); Eosinophils Absolute Auto 0.3 K/mm3 (0-0.3); Eosinophils Percent Auto 2.2 % (0-4.4); Hematocrit 44.2 % (37.0-47.0); Hemoglobin 15.1 g/dL (12.0-15.0); Immature Granulocyte Absolute 0.05 K/mm3 (0.00-0.031); Immature Granulocyte Percent A 0.3 % (0-0.5); Lymphocytes Absolute Auto 3.52 K/mm3 (0.9-3.2); Lymphocytes Percent Auto 22.7 % (18.3-44.2); Mean Corpuscular HGB Conc 34.2 g/dl (32-36); Mean Corpuscular Hemoglobin 29.4 pg (26-34); Mean Corpuscular Volume 86.2 fl (80-100); Mean Platelet Volume 12.5 fl (7.4-10.4); Monocytes Absolute Auto 1.4 K/mm3 (0.1-0.6); Monocytes Percent Auto 8.8 % (2.6-8.5); Neutrophils Absolute Auto 10.2 K/mm3 (1.3-6.7); Neutrophils Percent Auto 65.6 % (45.5-73.1); Platelet Count Result 268 k/mm3 (150-375); Red Blood Count 5.13 M/mm3 (4.2-5.4); Red Cell Distribution Width 13.1 % (11.5-14.5); White Blood Count 15.5 K/mm3 (4.5-10.0)
[2023-07-27 02:59] LABS: Alanine Aminotransferase 21 U/L (6-35); Albumin Level 4.3 g/dL (3.5-5.1); Alkaline Phosphatase 79 U/L (38-126); Anion Gap 7 mmol/L (8-16); Aspartate Amino Transferase 30 U/L (14-36); Bilirubin,Total 0.5 mg/dL (0.2-1.3); Blood Urea Nitrogen 11 mg/dL (7-17); Calcium 10.2 mg/dL (8.4-10.2); Carbon Dioxide 21 mmol/L (22-30); Chloride 109 mmol/L (98-107); Estimated CRCL calculation 191 ml/min; Estimated Glomerular Filt Rate > 60; Glucose 167 mg/dL (65-110); Lipase 350 U/L (23-300); Potassium 3.3 mmol/L (3.4-5.0); Sodium 137 mmol/L (137-145)
[2023-07-27 03:20] VITALS: BP 139/85; PULSE 73; RESP 16; O2SAT 100
[2023-07-27] MEDS: ONDANSETRON INJ 4 MG/2 ML VIAL IV PUSH (03:29)
[2023-07-27] MEDS: SODIUM CHLORIDE 0.9% IV 1,000 ML 999 ML IV CONT (03:29)
[2023-07-27] MEDS: KETOROLAC 30 MG/ML VIAL (*BKC) 15 MG IV PUSH (03:30)
[2023-07-27] MEDS: MORPHINE SULFATE (*CRX) 4 MG/ML INJ IV PUSH (03:31)
--- NOTE | 2023-07-27 03:52 | ED.GENADULT ---
HPI - General Adult General Chief complaint: Abdominal Pain Stated complaint: abd and back pain Time Seen by Provider: 07/27/23 03:18 History of Present Illness HPI narrative: patient is a 28-year-old female who presents emergency department with chief complaint of epigastric abdominal pain. Patient reports that she was diagnosed with cholelithiasis previously and was doing okay until tonight where she ate some fish some medications and had some tiny tacos patient states she had severe pain in the epigastrium and right upper quadrant reports radiates to her back. Patient denies fever Related Data Home Medications Medication Instructions Recorded Confirmed No Home Medications 12/12/22 12/12/22 Allergies Allergy/AdvReac Type Severity Reaction Status Date / Time No Known Allergies Allergy Verified 07/13/23 18:51 Review of Systems Review of Systems: A 10 system review of systems was completed on the patient and is negative except for what is stated in the HPI. Nursing and ancillary documentation was reviewed. PMFSH Past Medical History Medical History Allergies Anxiety PCOS (polycystic ovarian syndrome) Surgical History Surgical History No pertinent past surgical history Social History Social History Smoking status: Never smoker Lack of Transportation: No Lack of Food: Never True Current Housing: I Have Housing Concerned About Future Housing: No Difficulty Paying Gas/Electric Bills: No Difficulty Paying for Meds: No Currently Unemployed: No Education: Associate Degree Difficulty w/ Childcare or Family Care: No Exam Narrative: GENERAL: Well-appearing, well-nourished, and in no acute distress. HEAD: Normocephalic, atraumatic. EYES: PERRLA and EOMI. ENT: Nares clear, no rhinorrhea or epistaxis. Mucous membranes moist. NECK: Supple. CHEST: Clear to auscultation. No respiratory distress. HEART: Regular rate and rhythm. No murmur heard. Normal peripheral pulses. ABDOMEN: Soft, tenderness to palpation the epigastric and right upper quadrant, nondistended, normal active bowel sounds. EXTREMITIES: Normal range of motion. No edema. SKIN: Warm, dry, no rash. NEURO: No focal deficits. Alert and oriented x3. PSYCH: Normal mood and affect. Course Vital Signs Vital signs: Vital Signs Temperature 36.4 C L 07/27/23 02:17 Pulse Rate 72 07/27/23 02:17 Respiratory Rate 18 07/27/23 02:17 Blood Pressure 141/79 H 07/27/23 02:17 Pulse Oximetry 100 07/27/23 02:17 Oxygen Delivery Room Air 07/27/23 02:17 Temperature 36.4 C L 07/27/23 02:17 Pulse Rate 63 07/27/23 05:20 Respiratory Rate 16 07/27/23 05:20 Blood Pressure 113/77 07/27/23 05:20 Pulse Oximetry 98 07/27/23 05:20 Oxygen Delivery Room Air 07/27/23 02:17 Medical Decision Making MDM Narrative Medical decision making narrative: differential diagnosis includes biliary colic, cholecystitis, choledocholithiasis, biliary obstruction laboratory studies were obtained that showed short white count of 15.5 this is lower than her previous is a liver enzymes within normal limits lipase was slightly elevated 350 this is actually improved from her previous visit. The patient has a known gallstone and disposed to follow his artery. The patient's pain was improved in the emergency department patient will be discharged home to follow-up with surgery Vital Signs Vital Signs: Vital Signs Temperature 36.4 C L 07/27/23 02:17 Pulse Rate 72 07/27/23 02:17 Respiratory Rate 18 07/27/23 02:17 Blood Pressure 141/79 H 07/27/23 02:17 Pulse Oximetry 100 07/27/23 02:17 Oxygen Delivery Room Air 07/27/23 02:17 Temperature 36.4 C L 07/27/23 02:17 Pulse Rate 63 07/27/23 05:20 Respiratory Ra
[2023-07-27 05:20] VITALS: BP 113/77; PULSE 63; RESP 16; O2SAT 98
== END 2023-07-27 06:26 | disposition home or self-care (01) ==
PROVIDERS: Emergency Provider Emergency Medicine; PCP Nurse Practitioner
DX: K80.50 Calculus of bile duct without cholangitis or cholecystitis without obstruction (principal); E28.2 Polycystic ovarian syndrome
CPT/HCPCS: 36415; 80053; 83690; 85025; 96361; 96374; 96375; 99284; J1885; J2270; J2405; J7030

== ENCOUNTER 2023-08-18 08:55 | Outpatient (CLI) | payer OTHER, SELFPAY ==
--- NOTE | ~2023-08-18 | US_ITS ---
Limited Abdominal Sonogram: Real-time sonographic imaging of the right upper quadrant was performed. Clinical History: Gallstone and chronic cholecystitis Findings: The liver appears normal with no evidence of bile duct dilatation. There are 2 hyperechoic masses in the liver. Main portal vein demonstrates normal direction of flow. The gallbladder is rela tively contracted, and probably filled with stones. No definite gallbladder wall thickening. The comm on bile duct measures 2 mm. The visualized pancreas, aorta, and IVC are unremarkable. Impression: Cholelithiasis. Hyperechoic liver masses, consistent with hemangiomas, as seen on prior CT scans. Reviewed, dictated and finalized at location . Impression: Cholelithiasis. Hyperechoic liver masses, consistent with hemangiomas, as seen on prior CT scan s.
== END 2023-08-18 08:56 | disposition home or self-care (01) ==
LOC: ANHIMG 08:58
PROVIDERS: PCP Nurse Practitioner; Visit Provider Surgery
DX: K80.20 Calculus of gallbladder without cholecystitis without obstruction (principal)
CPT/HCPCS: 76705

== ENCOUNTER 2023-08-18 13:20 | Outpatient (CLI) | payer OTHER, SELFPAY ==
[2023-08-18 13:59] LABS: Alanine Aminotransferase 15 U/L (6-35); Albumin Level 4.2 g/dL (3.5-5.1); Alkaline Phosphatase 64 U/L (38-126); Amylase 103 U/L (30-110); Aspartate Amino Transferase 19 U/L (14-36); Bilirubin,Total 0.4 mg/dL (0.2-1.3); Lipase 238 U/L (23-300)
== END 2023-08-18 13:21 | disposition home or self-care (01) ==
LOC: ANHSURGERY 13:24
PROVIDERS: PCP Nurse Practitioner; Visit Provider Surgery
DX: K80.10 Calculus of gallbladder with chronic cholecystitis without obstruction (principal); Z01.818 Encounter for other preprocedural examination
CPT/HCPCS: 36415; 80076; 82150; 83690

== ENCOUNTER 2023-08-22 02:08 | Day surgery (SDC) | payer OTHER, SELFPAY ==
[2023-08-07 15:15] VITALS: BMI 31.9
--- NOTE | 2023-08-07 15:19 | PC.NURSE ---
Report to the Outpatient Waiting Room, entrance under the green pavilion located off [facility], at time 10:30 on date 08/22/23. Planned Procedure Time: 12:30. Time changes happen often and if your time is changed the preop area will call you the afternoon before. - You and your visitor will be asked to self-screen and do not enter if you have any COVID symptoms. - A mask is optional within the hospital at this time. Patients may have clear liquids (water, carbonated beverages, clear teas, apple juice) until 3 hours prior to surgery (9:30) with a maximum of 20 ounces. - No food from midnight until time of surgery Take the following medications with a SIP of water the morning of surgery: N/A DO NOT STOP ANY OF YOUR OTHER PRESCRIPTION MEDICATIONS PRIOR TO SURGERY ?EXCEPT THE FOLLOWING Medications to discontinue per physician: N/A Date to take last dose: N/A Please no make-up, nail yemeni, hairspray, perfume, deodorant, or body powder the day of surgery. No jewelry (including any body piercings) or valuables the day of surgery, leave them at home. Please take a shower or bath the night before, or the morning of, surgery with an antibacterial soap. Wear comfortable, loose fitting clothing. - Jewelry must be removed prior to entering the operating room. Rings and piercings that are not removed may be cut off. - The hospital will not accept responsibility for valuables. - Please leave all valuables, including medications, at home the day of surgery. If you are going home after surgery, a licensed waste collection driver must drive you home. - NO public transportation without another adult if you receive anesthesia. - We recommend that an adult stay with you for 24 hours following discharge. - We also recommend that you do not drive, make important decision, drink alcoholic beverages, or take any drugs that were not prescribed by your health care provider for at least 24 hours after your discharge time. Follow any additional instructions given to you from your surgeon. If you or anyone in your household have experienced Covid symptoms in the past week, please notify your surgeon or the nurse liaison at the phone number below for possible testing. Telephone instructions given to PT Yuliana CATHERINE and asked if any additional questions and then verbalized understanding. Patient advised to call surgeon office or pre surgery nurse liaison [phone] if any additional questions.
[2023-08-22] VITALS (10 sets, daily range): BP systolic 106–134; BP diastolic 61–88; PULSE 65–106; RESP 12–25; TEMP 36.1–36.2; O2SAT 96–100
[2023-08-22] MEDS: KETOROLAC 15 MG/ML VIAL (*BKC) IV PUSH (11:19)
[2023-08-22] MEDS: ACETAMINOPHEN 500 MG TABLET 1000 MG PO (11:19)
--- NOTE | 2023-08-22 11:39 | P.PNAN_ITS ---
Anes - Initial Pre Proc Eval Procedure: Operation Date: 08/22/23 12:30 Proposed Procedures p Laparoscopic Cholecystectomy - Camden Barrera MD Date/Time: 08/22/23 11:39 Surgeon: Camden Barrera MD Pre Op Diagnosis: Chr Cholecystitis with Stones Patient Data Age: 28 Gender: F Height: 1.68 m Weight: 81.8 kg Last Vital Signs Temp 36.1 C L 08/22/23 10:48 Pulse 81 08/22/23 10:48 Resp 18 08/22/23 10:48 BP 127/88 08/22/23 10:48 Pulse Ox 100 08/22/23 10:48 O2 Del Method Room Air 08/22/23 10:48 Allergies Allergy/AdvReac Type Severity Reaction Status Date / Time No Known Allergies Allergy Verified 08/22/23 11:01 Home Medications Medication Instructions Recorded Confirmed Type No Home Medications 12/12/22 08/22/23 History Patient hx anesthesia problems: none Family hx anesthesia problems: none Results Review: All pre-operative results and documents have been reviewed as part of the pre- operative evaluation. [facility] Past Medical History Medical History Allergies Anxiety PCOS (polycystic ovarian syndrome) Surgical History Surgical History No pertinent past surgical history Social History Social History Smoking status: Never smoker Alcohol intake: current Drinks per week: 2 Substance use: never Substance use type: does not use Lack of Transportation: No Lack of Food: Never True Current Housing: I Have Housing Concerned About Future Housing: No Difficulty Paying Gas/Electric Bills: No Difficulty Paying for Meds: No Currently Unemployed: No Education: Associate Degree Difficulty w/ Childcare or Family Care: No Living arrangements: with family Occupation/Education: occupation 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 Informed Consent: The patient's anesthetic plan and its attendant risks and benefits were discussed with the patient/family/POA. Questions were solicited and answers provided to the satisfaction of the patient/family/POA.
--- NOTE | 2023-08-22 11:56 | WPDHPUPDATE1 ---
History and Physical Update Update Date/Time: 08/22/23 11:56 History and Physical has been reviewed, including an updated exam of the patient. There are NO changes in the patient's condition. Risks, benefits, and alternatives have been discussed and questions answered. Patient agrees to proceed with procedure.
[2023-08-22] MEDS: ceFAZolin 2 GM/D5W 50 ML 2 GM/50 ML BAG IVPB (12:05)
[2023-08-22] MEDS: LACTATED RINGERS 1,000 ML 30 ML IV CONT ×2 (13:03)
--- NOTE | 2023-08-22 13:10 | W.PM.PROC2 ---
Procedure Note - Detailed Date of Procedure 08/22/23 Pre-op Diagnosis Chr Cholecystitis with Stones Post-op Diagnosis Same Procedure Performed Laparoscopic cholecystectomy Surgeon Camden Barrera MD Travel Registered Nurse Icu Amaris Branch [facility] Anesthesia General and Local Indications Patient had been having postprandial right upper quadrant abdominal pain several different times. She went to the emergency room twice with this. CT scan at 1 of her emergency room visits showed a fairly large gallstone. Her pains improved with a low-fat diet. She had an ultrasound before surgery which showed gallstones. Patient is taken to surgery at this time for chronic cholecystitis, cholelithiasis Findings Moderate chronic inflammation, no biliary ductal dilatation, no liver abnormalities. Description of Procedure Patient was taken to surgery and induced into general anesthesia. The abdomen is prepped and draped. Trocars were placed in the usual fashion using Referrizer optical trocars and a 5 mm camera. After the trocars were in place in the abdomen was insufflated, the patient was placed in reverse Trendelenburg. The gallbladder was decompressed with a laparoscopic aspirator. We then grasped the fundus of the gallbladder where the cholecystotomy was made and retracted the and anterior 0 superiorly. Dissection was carried out in the cholecystohepatic triangle. Traction was placed on the infundibulum. The cystic duct and cystic artery were dissected out very clearly. The gallbladder was dissected off the liver at its lower 3rd. Critical view was achieved. I then securely clipped and divided the cystic artery and cystic duct. The gallbladder was then dissected free of its remaining attachments to the liver. There was very little if any bleeding associated with the procedure. The gallbladder was placed in an Endo-Catch bag and retrieved through the 10 11 epigastric trocar site. We replaced this epigastric trocar and then reviewed the gallbladder fossa and right upper quadrant. There was no evidence of bleeding or bile leakage. The clips were secure on the appropriate structures. We then evacuated CO2 removed the trocar sleeves. Skin wounds were closed with subcuticular 4-0 Monocryl skin suture. The wounds were dressed with Exofin surgical adhesive. Patient was awakened and taken to recovery in good condition. Sponge and needle counts were correct x2. Estimated Blood Loss -5 Drains No Packing No Pathology Yes (Gallbladder) Complications No immediate complications Condition Stable Disposition PACU [facility] Billing Surgery - Charge Forward: Surgery Billing (Laparoscopic cholecystectomy)
== END 2023-08-22 15:38 | disposition home or self-care (01) ==
PROVIDERS: PCP Nurse Practitioner; Visit Provider Surgery
PROC: 0FT44ZZ Resection of Gallbladder, Percutaneous Endoscopic Approach (ICD-10-PCS; CPT 47562; principal; 2023-08-22 12:30)
DX: K80.10 Calculus of gallbladder with chronic cholecystitis without obstruction (principal)
CPT/HCPCS: 47562; 36415; 76705; 80076; 82150; 83690; 88304; A9270; J0690; J1100; J1170; J1200; J1885; J2250; J2405; J3010; J7120

== ENCOUNTER 2023-11-20 14:41 | Outpatient (CLI) | payer OTHER, SELFPAY ==
--- NOTE | ~2023-11-20 | US_ITS ---
EXAMINATION: US right upper quadrant DATE: 11/20/2023 14:24 INDICATION: Right upper quadrant abdominal pain. TECHNIQUE: Multiple grayscale and Doppler ultrasound images of the abdomen were obtained. COMPARISON: CT abdomen pelvis 07/13/2023, 05/09/22 FINDINGS: The visualized portions of the head and body of the pancreas are normal. There are chronic 1.6 and 2.2 cm hyperechoic masses in the liver, likely hemangiomas. There is normal flow in main port al vein. The gallbladder is absent. The common duct is normal and measures 5 mm. IMPRESSION: 1. No etiology for the patient's symptoms. Reviewed, dictated and finalized at location E.
[2023-11-20 15:16] LABS: Basophils Percent Auto 0.3 % (0.2-1.2); Eosinophils Absolute Auto 0.2 K/mm3 (0-0.3); Eosinophils Percent Auto 1.9 % (0-4.4); Hematocrit 43.5 % (37.0-47.0); Hemoglobin 14.6 g/dL (12.0-15.0); Immature Granulocyte Absolute 0.04 K/mm3 (0.00-0.031); Immature Granulocyte Percent A 0.3 % (0-0.5); Lymphocytes Absolute Auto 2.76 K/mm3 (0.9-3.2); Lymphocytes Percent Auto 23.6 % (18.3-44.2); Mean Corpuscular HGB Conc 33.6 g/dl (32-36); Mean Corpuscular Hemoglobin 30.2 pg (26-34); Mean Corpuscular Volume 90.1 fl (80-100); Mean Platelet Volume 12.2 fl (7.4-10.4); Monocytes Absolute Auto 0.9 K/mm3 (0.1-0.6); Monocytes Percent Auto 7.4 % (2.6-8.5); Neutrophils Absolute Auto 7.8 K/mm3 (1.3-6.7); Neutrophils Percent Auto 66.5 % (45.5-73.1); Platelet Count Result 265 k/mm3 (150-375); Red Blood Count 4.83 M/mm3 (4.2-5.4); Red Cell Distribution Width 13.2 % (11.5-14.5); White Blood Count 11.7 K/mm3 (4.5-10.0)
[2023-11-20 15:22] LABS: Alanine Aminotransferase 16 U/L (6-35); Albumin Level 4.4 g/dL (3.5-5.1); Alkaline Phosphatase 64 U/L (38-126); Aspartate Amino Transferase 22 U/L (14-36); Bilirubin,Total 0.7 mg/dL (0.2-1.3); Lipase 200 U/L (23-300)
== END 2023-11-20 14:42 | disposition home or self-care (01) ==
PROVIDERS: PCP Nurse Practitioner; Visit Provider Surgery
DX: R10.11 Right upper quadrant pain (principal)
CPT/HCPCS: 36415; 76705; 80076; 83690; 85025

== ENCOUNTER 2023-12-11 07:36 | Outpatient (CLI) | payer OTHER, SELFPAY ==
[2023-12-11 07:55] LABS: Basophils Percent Auto 0.3 % (0.2-1.2); Eosinophils Absolute Auto 0.2 K/mm3 (0-0.3); Eosinophils Percent Auto 2.4 % (0-4.4); Hematocrit 42.7 % (37.0-47.0); Hemoglobin 14.2 g/dL (12.0-15.0); Immature Granulocyte Absolute 0.03 K/mm3 (0.00-0.031); Immature Granulocyte Percent A 0.3 % (0-0.5); Lymphocytes Absolute Auto 2.75 K/mm3 (0.9-3.2); Lymphocytes Percent Auto 27.7 % (18.3-44.2); Mean Corpuscular HGB Conc 33.3 g/dl (32-36); Mean Corpuscular Hemoglobin 30.5 pg (26-34); Mean Corpuscular Volume 91.6 fl (80-100); Mean Platelet Volume 12.4 fl (7.4-10.4); Monocytes Absolute Auto 0.9 K/mm3 (0.1-0.6); Monocytes Percent Auto 8.9 % (2.6-8.5); Neutrophils Percent Auto 60.4 % (45.5-73.1); Platelet Count Result 261 k/mm3 (150-375); Red Blood Count 4.66 M/mm3 (4.2-5.4); Red Cell Distribution Width 13.1 % (11.5-14.5); White Blood Count 9.9 K/mm3 (4.5-10.0)
== END 2023-12-11 07:37 | disposition home or self-care (01) ==
LOC: ANHLAB 07:39
PROVIDERS: PCP Nurse Practitioner; Visit Provider Surgery
DX: R10.11 Right upper quadrant pain (principal)
CPT/HCPCS: 36415; 85025